=== PATIENT | female | born 1985 | race Caucasian/White ===

== ENCOUNTER 2016-09-13 06:10 | Inpatient (IN) | payer OTHER ==
[~2016-09-13] VITALS: Ht 157.5 cm; Wt 98.0 kg
[~2016-09-13 06:10] MED LIST: BACTRIM DS TAB1 EACH PO; CELEXA40 MG PO; CEPHALEXIN500 MG PO; CYCLOBENZAPRINE5 MG PO; NAPROXEN500 MG PO; NORCO 5-325 TA1 EACH PO; PRENATAL-FOLIC1 EACH PO; PREVACID30 MG PO; PRILOSEC20 MG PO; PRILOSEC40 MG PO; TRAMADOL HCL50 MG PO; TYLENOL325 MG PO; WELLBUTRIN SR100 MG PO; [UNRECOGNIZED DRUG - OTHER] PO
--- NOTE | 2016-09-13 16:59 | PR ---
[facility] [address] [facility] [address] [place], [place] [address] Signed Progress Notes IP Datetime Report Generated by CPN: 09/13/2016 16:58 PROGRESS NOTES: [id number] Impression: Normal progression of labor Procedures: Sterile Vag Exam Plan: Anticipate Vaginal Delivery Informed Consent Obtain: Vaginal Delivery; Risks, Benefits and Alternatives Discussed VITAL SIGNS: [id number] Vital Signs: Reviewed; Within Normal Limits EXAM: [id number] Dilatation: 10.0 Effacement: 100 Station: -2 Uterine Contractions: everty two minutes MEMBRANES: [id number] Membrane Status: Ruptured Amniotic Fluid Color: Clear ROM Note: amniotomy - clear copious fluid Comments: patient complete and starting to push. Fetus A: [id number] FHR Baseline: 120's Variability: Moderate 6-25bpm Accelerations: 15X15 Decelerations: None FHR Category: Category I Presentation: Vertex Comments on Fetus A: reactive Fetus B: [id number] Signing Physician: Gabby Crowley MD CC: *Electronically Signed* 09/13/16 1658 GABBY CROWLEY MD PATIENT NAME: JACKIE HARRIS PROGRESS NOTE DATE OF : 81 PHYSICIAN: GABBY CROWLEY MD RPT #: [id number] REPORT IS CONFIDENTIAL AND NOT TO BE RELEASED WITHOUT AUTHORIZATION
--- NOTE | 2016-09-14 13:39 | PR ---
[facility] [address] [facility] [place], [place] [address] Signed PP Progress Notes Datetime Report Generated by CPN: 09/14/2016 13:38 SUBJECTIVE: [id number] Pain: Within normal limits Nausea/Vomiting: Denies Flatus: Yes Bowel Movement: Yes Vital Signs: [id number] Vital Signs: Reviewed; Within Normal Limits EXAM: [id number] Cardiovascular: Normal Respiratory: Normal Abdomen/Uterus: Normal Lochia: Normal Vulva/Perineum: Normal Breasts: Normal CVA Tenderness: Normal Extremities: Normal Incision: Not Applicable Progress: Normal IMPRESSION/PLAN/PROCEDURES: [id number] Impression: Normal progression Plan: Continue present management Procedures: None Progress Notes: patient doing well. Baby doing well. GBS pos Signing Physician: Gabby Crowley MD CC: *Electronically Signed* 09/14/16 1338 GABBY CROWLEY MD PATIENT NAME: JACKIE HARRIS PROGRESS NOTE DATE OF : 81 PHYSICIAN: GABBY CROWLEY MD RPT #: [id number] REPORT IS CONFIDENTIAL AND NOT TO BE RELEASED WITHOUT AUTHORIZATION
--- NOTE | 2016-09-15 14:08 | PR ---
[facility] [address] [facility] [place], [place] [address] Signed PP Progress Notes Datetime Report Generated by CPN: 09/15/2016 14:07 SUBJECTIVE: [id number] Pain: Within normal limits Nausea/Vomiting: Denies Flatus: Yes Bowel Movement: Yes Vital Signs: [id number] Vital Signs: Reviewed; Within Normal Limits EXAM: [id number] Cardiovascular: Normal Respiratory: Normal Abdomen/Uterus: Normal Lochia: Normal Vulva/Perineum: Normal Breasts: Normal CVA Tenderness: Normal Extremities: Normal Incision: Not Applicable Progress: Normal IMPRESSION/PLAN/PROCEDURES: [id number] Impression: Normal progression Plan: Discharge Procedures: None Progress Notes: patient doing well. Baby doing well. GBS pos Signing Physician: Gabby Crowley MD CC: *Electronically Signed* 09/15/16 1407 GABBY CROWLEY MD PATIENT NAME: JACKIE HARRIS PROGRESS NOTE DATE OF : [birth year] PHYSICIAN: GABBY CROWLEY MD RPT #: [id number] REPORT IS CONFIDENTIAL AND NOT TO BE RELEASED WITHOUT AUTHORIZATION
== END 2016-09-15 14:40 | disposition home or self-care (01) | DRG 775 ==
LOC: FBC 06:11
PROVIDERS: ADMIT Obstetrics & Gynecology
PROC: 10E0XZZ Delivery of Products of Conception, External Approach (ICD-10-PCS; principal; 2016-09-13)
PROC: 10907ZC Drainage of Amniotic Fluid, Therapeutic from Products of Conception, Via Natural or Artificial Opening (ICD-10-PCS; 2016-09-13)
DX: O40.3XX0 Polyhydramnios, third trimester, not applicable or unspecified (principal); Z3A.38 38 weeks gestation of pregnancy; Z37.0 Single live birth; O69.81X0 Labor and delivery complicated by cord around neck, without compression, not applicable or unspecified; O70.1 Second degree perineal laceration during delivery
CPT/HCPCS: 01960; 36415; 85027; 90707; J2540; J2590; J2795; J7120

== ENCOUNTER 2019-05-30 14:22 | Inpatient (IN) | payer OTHER ==
[~2019-05-30] VITALS: Ht 157.5 cm; Wt 75.8 kg
--- NOTE | 2019-05-30 21:35 | EKG ---
[facility] [address] [facility] [place] [address] Signed Sinus tachycardia Otherwise normal ECG Confirmed by TAYA NIEVES MD ([id number]) on 05/30/2019 9:35:22 PM Electronically Signed By: TAYA NIEVES MD 05/30/19 2135 PATIENT NAME: JACKIE HARRIS Electrocardiogram DATE OF : 81 PHYSICIAN: TAYA NIEVES MD REPORT #: [id number] REPORT IS CONFIDENTIAL AND NOT TO BE RELEASED WITHOUT AUTHORIZATION
[2019-06-02] MEDS ORDERED: IBUPROFEN600 MG PO (09:58)
[2019-06-02] MEDS ORDERED: DOK PLUS TABLE1 EACH PO (09:59)
[2019-06-02] MEDS ORDERED: POLYETHYLENE GL17 GM PO (09:59)
[2019-06-02] MEDS ORDERED: CIPROFLOXACIN500 MG PO (10:02)
== END 2019-06-02 11:05 | disposition home or self-care (01) | DRG 872 ==
LOC: ED 14:22 → MS 19:28
PROVIDERS: ADMIT Internal Medicine
DX: A41.51 Sepsis due to Escherichia coli [E. coli] (principal); N10 Acute pyelonephritis; E87.1 Hypo-osmolality and hyponatremia; E87.6 Hypokalemia; E86.1 Hypovolemia; Z88.2 Allergy status to sulfonamides; Z88.1 Allergy status to other antibiotic agents
CPT/HCPCS: 36415; 51701; 71045; 80048; 80053; 81001; 83605; 83735; 84703; 85025; 87077; 87088; 87186; 93005; 93010; 99285-25; J0696; J1650; J1885; J2405; J3475; J3480; J7030; J7121

== ENCOUNTER 2020-01-24 10:32 | Inpatient (IN) | payer OTHER ==
[~2020-01-24] VITALS: Ht 157.5 cm; Wt 76.5 kg
[~2020-01-24 10:32] MED LIST changes: +CIPROFLOXACIN500 MG PO; +DOK PLUS TABLE1 EACH PO; +IBUPROFEN600 MG PO; +POLYETHYLENE GL17 GM PO
--- NOTE | 2020-01-24 15:55 | NUR ---
REPORT RECEIVED FROM MIGUEL RAMOS AT BEDSIDE IN ED. PT TRANSPORTED TO ON STRETCHER WITH SAMREEN PAZ RT SHANKAR AT VENTILATOR, MIGUEL RAMOS AND THIS RN. TRANSFERED TO BED W\O DIFFICULTY. PT TITRATED DOWN TO 40MCQ\KG\HR. VENT SETTINGS AT 40 FI02, PEEP 5, PIP 21 RR 16. VS STABLE. RUTLEDGE DRAINING LIGHT YELLOW Q\S URINE. TEMP UP TO 97.5, BS 51. TURNED D10 BACK UP TO [address] DALLAS AT BEDSIDE. SUCTION AT BEDSIDE.
--- NOTE | 2020-01-24 16:46 | NUR ---
PT BECAME RESTLESS, THRASHING IN BED. GIVEN 50MCQ OF FENTYL AND TURNED PROP UP TO 55MCQ
--- NOTE | 2020-01-24 17:08 | NUR ---
RT AND DR NIEVES IN ROOM TO DRAW ABG. VS STABLE. RUTLEDGE EMPTIED AND PUMPS CLEARED.
--- NOTE | 2020-01-24 17:39 | NUR ---
BP TRENDING DOWN. TITRATED PROP DOWN TO 50MCQ AND ADMINISTERED 50MCQ OF FENTYL PT WAS STIRRING.
--- NOTE | 2020-01-24 17:45 | NUR ---
RESTRAINTS CHECKED. CMS INTACT.
--- NOTE | 2020-01-24 20:35 | NUR ---
PT DID AWAKEN TO TOUCH AND TRY TO SIT FORWARD. CONT ON PROPOFOL AT 50MCG/MIN PT GIVEN 40MG KETAMINE IV. PT REPOSTIONED. NOTED TO HAVE RHONCHI THROUGHOUT, SUCTIONED ETT, RHONCHI ALMOST CLEAR L CHEST AND REDUCED ON RT. SUCTIONED ORALLY. ROM DONE.
--- NOTE | 2020-01-24 21:23 | NUR ---
DR NIEVES CALLED RE RECOMENDATION FROM [facility] OF OCTREOTIDE FOR HYPOGLYCEMIA, ORDER RECIEVED. ORAL CARE DONE. PT SOMEWHAT RESISTIVE DURING ORAL CARE, REASURED AND DID CALM ON OWN. BROW FURROWED WHEN OCTREOTIDE GIVEN AND CRIED , AGAIN CALMED , CONT ON PROPOFOL AT 50MG/HR
--- NOTE | 2020-01-24 21:57 | NUR ---
PATIENT RUTLEDGE EMPTIED OF 220CC CLEAR YELLOW URINE. BLOOD GLUCOSE CHECKED AND WAS 127.
--- NOTE | 2020-01-24 22:45 | NUR ---
SOMEWHAT RESLTESS, GIVEN 40MG KETAMINE IV. SUCTINED ORALLY. REPOSITONED
--- NOTE | 2020-01-24 23:11 | NUR ---
PATIENT BLOOD GLUCOSE WAS 170. DR. NIEVES CONTACTED. PER DR. NIEVES, DEXTROSE 10 TITRATED TO 50ML/HR. RUTLEDGE EMPTIED OF 60CC CLEAR YELLOW URINE.
--- NOTE | 2020-01-25 00:16 | NUR ---
SUCTIONED ORALLY, AROUSED BRIEFLY THEN BACK TO SLEEP. BP 88/55, PROPOFOL DEC TO 45MG/HR. BS 165, D10 INUSION TURNED OFF.
--- NOTE | 2020-01-25 00:50 | NUR ---
RT IN TO DO ORAL CARE AND CHANGE ETT CONNER. PT GIVEN 20MG KETAMINE IV PRIOR TO PROCEDURE FOR SEDATION.
--- NOTE | 2020-01-25 02:02 | NUR ---
PT. BLOOD GLUCOSE WAS 113. RUTLEDGE EMPTIED OF 55CC OF CLEAR, STRAW COLOR URINE.
--- NOTE | 2020-01-25 02:54 | NUR ---
HAD TITRATED PROPOFOL TO 35MG/HR. PT AROUSED AND COUGHING, AND GAGGING. SUCTIONED ORALLY, AND DOWN ETT. PT CONT TO GAG SO WAS GIVEN 20MG KETAMINE IV. RT VALENTIN HERE AND PIP NOTED 44, ETT SUCTIONED FURTHER AND PIP DID DECT O 22. BREATH TONE CLEAR. IS QUIET NOW.
--- NOTE | 2020-01-25 03:02 | NUR ---
PATIENT BLOOD GLUCOSE WAS 130. RUTLEDGE EMPTIED OF 140CC LIGHT YELLOW URINE. PATIENT REPOSITIONED IN BED.
--- NOTE | 2020-01-25 04:15 | NUR ---
PT AGITATED WITH COUGHING EPISODE, THROWING LEG OVER SIDE RAIL AND GAGGING STRONGLY. GIVEN 20MG KETAMINE IV. PT CALMED AND THEN ABLE TO DO ORAL CARE WITHOUT DISTRESS.
--- NOTE | 2020-01-25 04:34 | NUR ---
PATIENT ASSESSMENT COMPLETED AND PT. LUNGS CLEAR THROUGHOUT. RECEIVED INLINE SUCTION AFTER COUGHING AND ORAL CARE. PATIENT RESPONSIVE AND CRIED AT TIMES. WHEN ASKED TO SQUEEZE NURSES HAND, PT. DID SO. PT. RECEIVED PASSIVE ROM. PT. IV SITES WNL. PT. LEFT RESTING IN BED.
--- NOTE | 2020-01-25 07:30 | NUR ---
REPORT RECEIVED FROM NIGHTSHIFT RN, CARE OF PT. RESUMED, WILL CONTINUE PLAN OF CARE.
--- NOTE | 2020-01-25 08:15 | NUR ---
PT LAYING IN BED IV D5LR INFUSING AT ORDERED RATE OF 125, PROPOFOL INFUSING AT 35MCG/KG/MIN. VT AT 500, FIO2 AT 30%, PEEP AT 5, VC-AC AT 16. PT RASS SCORE CURRENTLY AT -3. ETCO2 AT 40, RR AT 16. PT LAYING SLIGHT GRIMACE DURING FINGER POKE WHEN CHECKING BLOOD GLUCOSE. BED IN LOWEST POSITION, SOFT RESTRAINTS IN PLACE ON WRIST, 24CM MARKED AT TEETH. WILL CONTINUE PLAN OF CARE.
--- NOTE | 2020-01-25 08:48 | NUR ---
PROPOFOL DECREASED TO 20MCG/KG/MIN PER DR. NIEVES'S ORDERS TO HALF THE DOSE. ORDERED MEDICATIONS GIVEN, PT SUCTIONED ORALY DUE TO COUGHING FIT. PT WAS RESTLESS BUT ABLE TO RELAX AND CALM DOWN WITH SOME ORIENTING AND TALKING. PT NOW LAYING IN BED RELAXED. IVF STILL INFUSING AT ORDERED RATE, PROPOFOL NOW INFUSING AT 20MCG/KG/MIN. WILL CONTINUE PLAN OF CARE.
--- NOTE | 2020-01-25 08:58 | NUR ---
DR. NIEVES IN ROOM TO ASSESS PT. ORDERS GIVEN TO REDUCE PROPOFOL DOWN FROM 20 TO 5MCG/KG/MIN. PROPOFOL NOW INFUSING AT NEW ORDERED RATE, WILL CONTINUE PLAN OF CARE.
--- NOTE | 2020-01-25 09:08 | NUR ---
PT LAYIN IN BED WITH A RASS SCORE OF -1, PER DR. TOURE ORDER PROPOFOL STOPPED AT 0910, WILL CONTINUE PLAN OF CARE.
--- NOTE | 2020-01-25 09:15 | NUR ---
MED REC COMPLETE
--- NOTE | 2020-01-25 10:23 | NUR ---
PT LAYING IN BED SEMIFOWLERS. PT NOW ON CPAP MODE ON VENTILATOR. RR AT 10, SPO2 96%, FIO2 AT 30%, PEEP AT 5. PT MORE ALERT THOUGH STILL SLIGHTLY DROWSY. PT. HAS BEEN HAVING PERIODS OF ALERTNESS AND RESTLESSNESS BUT ALSO GOES BACK TO A STATE OF DROWSINESS. PT CURRENTLY AWAKE WITH EYES OPEN. PT HAS DECLINED SUCTIONING WHEN ASKED. IVF INFUSING ORDERED. WILL CONTINUE PLAN OF CARE.
--- NOTE | 2020-01-25 10:37 | NUR ---
PT READY TO EXTUBATE, WAITING FOR DR. NIEVES. PT ABLE TO FOLLOW COMMANDS AT THIS TIME. WILL CONTINUE PLAN OF CARE.
--- NOTE | 2020-01-25 11:01 | NUR ---
PT EXTUBATED AT 1048. PT CURRENTLY LAYING IN BED AWAKE. PT WAS REORIENTED TO EVENT AND LOCATION SHE WAS ASKING WHAT HAPPENED. IVF INFUSING AT ORDERED RATE PT SPO2 AT 96% ON ROOM AIR PT REFUSED NC AFTER EXTUBATION. PT REPORTS NO PAIN AT THIS TIME AND NO FURTHER NEEDS. WILL CONTINUE PLAN OF CARE.
--- NOTE | 2020-01-25 11:30 | NUR ---
POISON CONTROL CALLED BACK AND GIVEN AN UPDATE. THEY STATED THEY WILL FOLLOW UP AGAIN THIS AFTERNOON. NO FURTHER SUGGESTIONS AT THIS TIME.
--- NOTE | 2020-01-25 12:32 | NUR ---
PT LAYIN IN BED WITH AT BEDSIDE. IV FLUIDS INFUSING AT ORDERED RATES. PT REPORTS NO PAIN WHEN ASKED. PT CURRENTLY ON ROOM AIR, SPO2 AT 94%, RR AT 20. PT ORIENTED TO SELF, LOCATION, AND MONTH WHEN ASKED. PT REPORTED NO FURTHER NEEDS WHEN ASKED, WILL CONTINUE PLAN OF CARE.
--- NOTE | 2020-01-25 14:10 | EKG ---
[facility] [address] [facility] [place] [address] Signed Normal sinus rhythm with sinus arrhythmia Prolonged QT Abnormal ECG When compared with ECG of 30-MAY-2019 15:02, Vent. rate has decreased BY 37 BPM Confirmed by TAYA NIEVES MD ([id number]) on 01/25/2020 2:10:05 PM Electronically Signed By: TAYA NIEVES MD 01/25/20 1410 PATIENT NAME: JACKIE HARRIS Electrocardiogram DATE OF : 81 PHYSICIAN: TAYA NIEVES MD REPORT #: [id number] REPORT IS CONFIDENTIAL AND NOT TO BE RELEASED WITHOUT AUTHORIZATION
--- NOTE | 2020-01-25 14:11 | NUR ---
PT LAYING IN BED RESTING. PT ON ROOM AIR WITH AN SPO2 OF 94% AND RR OF 17. PT STATES THAT SHE HAS NO PAIN WHEN ASKED. RUTLEDGE CATHETER REMOVED. PT TOLERATED IT WELL AND RUTLEDGE WAS INTACT AND WITHIN NORMAL LIMITS. IV FLUIDS INFUSING ORDERED. PT REPORTS NO NEEDS AT THIS TIME WHEN ASKED. BED IN LOWEST POSITION, CALL LIGHT WITHIN REACH. PT INFORMED ABOUT USING CALL LIGHT NOW THAT RUTLEDGE HAS BEEN REMOVED. WILL CONTINUE PLAN OF CARE.
--- NOTE | 2020-01-25 15:00 | NUR ---
Assessment completed on Connie. She is sleepy and has difficulty speaking. Wants to go home on dc. States they are staying with friends and are no longer homeless. She has services with [facility] and they visited after her notified them she was in CCU.
--- NOTE | 2020-01-25 15:15 | NUR ---
RESPONDED TO PT IV PUMP. PT LAYING IN BED SLEEPING. ARM REPOSITIONED AND IV FLUIDS RESUMED. PT STATES SHE HAS NO PAIN WHEN ASKED. PT REPORTS NO FURTHER NEEDS WHEN ASKED AND RETURNED BACK TO SLEEP. BED IN LOWEST POSITION, CALL LIGHT WITHIN REACH, WILL CONTINUE PLAN OF CARE.
--- NOTE | 2020-01-25 16:30 | NUR ---
PT LAYING IN BED RESDTING. IV FLUIDS INFUSING ORDERED. PT SPO2 AT 93%, RR AT 21 ON ROOM AIR. PT REPORTS NO PAIN WHEN ASKED AND NO DIFFICULTY BREATHING. PT REPORTS NO FURTHER NEEDS AT THIS TIME. WILL CONTINUE PLAN OF CARE. CALL LIGHT ON BED WITHIN REACH, BED IN LOWEST POSITION.
--- NOTE | 2020-01-25 17:12 | NUR ---
PT LAYING IN BED AWAKE. WHEN ASKED IF SHE NEEDED TO USE THE RESTROOM PT. SAID YES. PT WAS ABLE TO GET UP TO BEDISDE COMMODE UNASSISTED AND VOIDED 800ML. PT THEN WAS ABLE TO WALK OVER TO BEDSIDE CHAIR AND SIT DOWN. PT WIPED DOWN WITH BATH WIPES BY MIGUEL CHANG. PT LINENS AND GOWN CHANGED. PT NOW AT BEDSIDE CHAIR RESTING WITH EYES CLOSED. PT REPORTS NO PAIN AND NO FURTHER NEEDS AT THIS TIME. PT DINNER HAS ARRIVED AND WILL BE HAVING A CLEAR LIQUID TRAY. CALL LIGHT WITHIN REACH. WILL CONTINUE PLAN OF CARE.
--- NOTE | 2020-01-25 19:15 | NUR ---
Report received, orders acknowledged. in room visiting with patient currently.
--- NOTE | 2020-01-25 19:45 | NUR ---
Patient laying in bed on left side, leaves room. Patient seems subdued. When asked how patient is, patient becomes teary and states "I'm doing okay, I'm really tired." POC for the shift is discussed, patient agreeable. New bag of D5LR infusing at 75 mls/hr. Patient denies any needs at this time. Patient is laying in bed with eyes closed, call light within reach.
--- NOTE | 2020-01-25 21:47 | NUR ---
Patient up to toilet with SBA to help manage cords, steady on feet. Voids 900 mls of yellow urine. Returns to bed, non-productive coughing noted at times. Patient now laying on right side, respirations even and unlabored. Reports headache with 5/10 pain. Patient falls asleep easily with eyes closed. D5LR infusing at 75 mls/hr. Warm blanket provided, call light within reach.
--- NOTE | 2020-01-25 23:13 | NUR ---
Patient sleeping in bed. HR noted to increase to the 110-120's at times. This is typically associated with patient readjusting in bed. Call light within reach.
--- NOTE | 2020-01-26 00:10 | NUR ---
Patient sleeping in bed on right side, respirations even and unlabored. Patient rouses to physical stimulation. Vital signs taken, assessment complete. BG of 109. Patient sits up in bed and uses IS several times, which produces coughing. Crackles auscultated in patient's right lower and mid lobe, dim in the lower left lobe, and clear in upper lobes. 500mg of tylenol given for headache, patient reports pain of 5/10. Patient appears flushed and clammy, temp of 97.9. Denies any needs at this time, call light within reach.
--- NOTE | 2020-01-26 01:48 | NUR ---
Patient sleeping in bed, respirations even and unlabored. SpO2 of 98% on RA, respiratory rate of 20. D5LR infusing at 75 mls/hr. Call light within reach.
--- NOTE | 2020-01-26 03:50 | NUR ---
Patient sleeping in bed on right side, respirations even and unlabored. SpO2 in the upper 90's on RA. Vital signs taken, assessment complete. BG of 102. D5LR infusing at 75 mls/hr. Denies headache, falls asleep easily. Call light within reach.
--- NOTE | 2020-01-26 05:45 | NUR ---
Patient laying in bed on right side, respirations even and unlabored. SpO2 of 99% on RA, RR of 20. D5LR infusing at 75 mls/hr. Call light within reach.
--- NOTE | 2020-01-26 06:19 | PATH ---
[facility] [address] [place], [place] [address] Signed ORDERING PHYSICIAN: Inés Singh MD PATIENT NAME: JACKIE HARRIS GENDER: F : 1985 Prior History: DATE CASE NUM ADEQUACY DIAGNOSIS HPV RESULTS PHYSICIAN 05/19/12 [id number] Kvng Castillo MD The 5 most recent reports are included. This history does not include results of pap smears performed at another laboratory. SPECIMEN(S): MOLECULAR PATHOLOGY RESULTS: SARS-CoV-2 Not Detected ADDITIONAL NOTES.: The [place] [employer] Fusion SARS-CoV-2 Assay is a multiplex real-time PCR (RT-PCR) in vitro diagnostic test intended for the qualitative detection of RNA from SARS-CoV-2 from individuals who meet COVID-19 clinical and/or epidemiological criteria. In general, SARS-CoV-2 RNA can be detected during the acute phase of infection. Positive results indicate the presence of SARS-CoV-2 RNA. Clinical correlation with patient history and other diagnostic information is necessary to determine patient infection status. Positive results do not rule out bacterial infection or co-infection with other viruses. Negative results do not preclude SARS-CoV-2 infection and should not be used as the sole basis for patient management decisions. Negative results must be combined with other clinical observations, patient history, and epidemiological information. The [place] Fusion SARS-CoV-2 Assay is not yet approved or cleared by the [place] FDA. When there are no FDA-approved or cleared tests available, and other criteria are met, FDA can make tests available under an emergency access mechanism called an Emergency Use Authorization (EUA). The EUA for this test is supported by the [place] of Health and Human Service's (HHS's) declaration that circumstances exist to justify the emergency use of in vitro diagnostics for the detection and/or diagnosis of the virus that causes COVID-19. This EUA will remain in effect for the duration of the PATIENT NAME: JACKIE HARRIS PATHOLOGY DATE OF : [birth year] REPORT #: [id number] PHYSICIAN: ANNEMARIE PATHOLOGY PCP: NO PRIMARY CARE PHYSICIAN REPORT IS CONFIDENTIAL AND NOT TO BE RELEASED WITHOUT AUTHORIZATION [facility] [address] [place], [place] [address] Signed COVID-19 declaration justifying emergency of IVDs, unless it is terminated or revoked by FDA, after which the test may no longer be used. The [place] Fusion SARS-CoV-2 Assay is for use only under EUA in US laboratories certified under the Clinical Laboratory Improvement Amendments of 1988 (CLIA) to perform high complexity tests. [facility] is certified under CLIA to perform high complexity clinical laboratory testing. PERFORMING LABORATORY.: Molecular testing was performed by [facility] [address] [place] [address] (In Home Nanny: Galileo Garza D.O.; CLIA#: [id number]) Diagnostician: System Interface Pathologist Electronically Signed 01/25/2020 Copies: ~ PATIENT NAME: JACKIE HARRIS PATHOLOGY DATE OF : [birth year] REPORT #: [id number] PHYSICIAN: ANNEMARIE PATHOLOGY PCP: NO PRIMARY CARE PHYSICIAN REPORT IS CONFIDENTIAL AND NOT TO BE RELEASED WITHOUT AUTHORIZATION
--- NOTE | 2020-01-26 07:56 | NUR ---
REPORT RECEIVED FROM MIGUEL TA. PT APPEARS TO BE RESTING COMFORTABLY WITH EYES CLOSED. HR 99, SR. LAST BS 102. D5LR @75. CALL LIGHT IN REACH.
--- NOTE | 2020-01-26 08:11 | NUR ---
CM FAY IN ROOM. PT DROWSY AND VOICE HOARSE. APPEARS TO BE ANSWERING ALL QUESTIONS. BS 85, WILL GIVE JUICE AND ORDER A BREAKFAST. ANNEALERJc ARCINIEGA DID VS.
--- NOTE | 2020-01-26 08:15 | NUR ---
Followed up with Connie. She is more awake today, but again complaining of feeling very tired and a sore throat. States she is living at her friend, Harry"s, house. She states she does not remember taking drugs just woke up here. She is not interested in drug placement, but wants to continue with G[facility] from [facility]. Updated I made her appt with Daniella Rodriguez, and reminded she must keep this appt or they will discharge her as their patient.
--- NOTE | 2020-01-26 08:18 | NUR ---
Pt. vitals taken and recorded. breakfast ordered. room picked up. no other needs at this time. call light with in pt. reach.
--- NOTE | 2020-01-26 08:46 | NUR ---
HUNG NEW BAG OF D5LR, BREAKFAST ORDERED.
--- NOTE | 2020-01-26 09:39 | NUR ---
WOKE PT AND ADMINISTERED PO k+ REPLACEMENT. PT TOLERATED WELL.
--- NOTE | 2020-01-26 10:42 | NUR ---
RECHECK OF BS IS 102. PT CONTINUES TO SLEEP BUT DID ASK FOR OTHER HAND TO BE USED FOR BS CHECK THIS TIME.
--- NOTE | 2020-01-26 11:49 | NUR ---
BS NOW 113. STARTED LR BOLUS. PT CONTINUES TO BE DROWSY BUT AROUSABLE. DRANK A VERY SMALL PORTION OF HER MOUNTAIN DEW.
--- NOTE | 2020-01-26 11:58 | NUR ---
IN ROOM TO DISCUSS NEW TREATMENT PLAN. MAKE PT STATUS NPO EXCEPT ICE WATER, DUE TO ELIMINATING ALL SUGAR FROM DIET TO TRIAL BS. TURNED OFF D5LR, LR BOLUS STILL RUNNING. REMOVED ALL FOOD AND SODA FROM ROOM. PT AWARE AND AGREEABLE.
--- NOTE | 2020-01-26 12:07 | NUR ---
HUNG LR THE MAINTENCE FLUIDS FOR AFTER BOLUS IS COMPLETE PER DR CASAS. REPLACED LEAD.
--- NOTE | 2020-01-26 13:10 | NUR ---
WOKE PT BRIEFLY TO ASK IF SHE HAD ANY S\\S OF HYPOGLYCEMIA, STATES SHE FEELS "NORMAL". ASSESED IV SITE WITH IVF RUNNING, KAVYA.
--- NOTE | 2020-01-26 14:09 | NUR ---
ASSESS BS (91) AND HAD A GOOD CONVERSTATION WITH PT REGARDING WHAT WE ARE TESTING FOR AND WHY SHE CAN'T EAT RIGHT NOW. SHE ASKED APPROPRIATE QUESTIONS AND STATED THAT SHE HAD TAKEN METH 2 DAYS PRIOR TO INCIDENT BUT NOTHING BEFORE FALLING ASLEEP FRIDAY EVENING. STATES SHE ATE PIZZA AND SOME SODA BUT DID NOT TAKE ANY PILLS OR ANY DRUGS. RE EDUCATED ON S\S OF HYPOGLYCEMIA TO WATCH FOR
--- NOTE | 2020-01-26 17:06 | NUR ---
PT VS ASSESSED. PT AGAIN REITERATED THAT SHE IS HUNGRY AND WOULD LIKE TO EAT. EDUCATED PT ON WHY WE HAVE HER NPO EXCEPT WATER AND VERBALIZED UNDERSTANDING. WILL REASSESS BS AT 18OO.
--- NOTE | 2020-01-26 17:55 | NUR ---
PT UP TO USE RESTROOM. 700 CLOUDY URINE OUT. ASSISTED PT TO DO A BED BATH, WASHED PT'S HAIR WITH A SHOWER CAP AND GIVEN PERSONAL SUPPLY BAG. ADMINISTERED TYLENOL FOR A HEADACHE AFTER SPEAKING WITH PHARMACY REGARDING ANY SUGAR CONTENT. PHARM STATED THE TAB DOES NOT CONTAIN ANY SUGARS.
--- NOTE | 2020-01-26 18:02 | NUR ---
PT BS @ 7229- 35. PUMP CLEARED. CALL LIGHT IN REACH. PT DENIES CONCERNS.
--- NOTE | 2020-01-26 18:30 | NUR ---
CALLED DR CASAS WITH BS RESULTS. HE WOULD LIKE TO KEEP HER NPO UNTIL 1999 AND IF THE BS HASN'T DROPPED SIGNIFICANTLY THEN SHE CAN EAT DINNER. THEN FAST AGAIN AT 2200 FOR CORTISYNTROPIN TEST AT 0800 TOMORROW. PT AGREEABLE AND ORDERED DINNER TO KEEP IN REFRIDGERATOR.
--- NOTE | 2020-01-26 19:15 | NUR ---
Report received, orders acknowledged.
--- NOTE | 2020-01-26 20:10 | NUR ---
Patient sitting up in bed watching tv. Vital signs taken, assessment complete. BG of 84 at [address] Da Silva to update on patient BG. Orders acknowledged to let patient eat until 2200, then begin fasting again until 0800 tomorrow morning for cosyntropin panel. Patient updated on POC, patient agreeable and understands fasting will begin again at 2200. Dinner delivered and patient eating meal.
--- NOTE | 2020-01-26 21:00 | NUR ---
Checked on patient to see if she would like anything to eat or drink before 2200, patient denies need for anything. Patient now laying in bed talking on the phone. Reports feeling cold, temp in room turned up. Patient denies need for warm blanket. Call light within reach.
--- NOTE | 2020-01-26 21:45 | NUR ---
Checked on patient to see if she would like anything else to eat or drink before 2200. Patient denies need for anything. Senna provided for patient. Patient uses IS several times, reaching 2250 on instrument. Large cough after using the IS. Patient laying in bed now watching tv, denies any needs. Call light within reach.
--- NOTE | 2020-01-26 22:00 | NUR ---
Patient laying in bed on left side with eyes closed. All drinks removed from room. No food or drink now available in room, patient starting to fast until 0800 tomorrow. Patient agreeable to POC. LR infusing at 75 mls/hr. Denies needs, call light within reach.
--- NOTE | 2020-01-27 00:30 | NUR ---
Patient sleeping in bed on right side, respirations even and unlabored. LR infusing at 75 mls/hr. Vital signs taken, assessment complete. BG of 103. Denies any pain. No needs at this time, call light within reach.
--- NOTE | 2020-01-27 04:15 | NUR ---
Patient sleeping in bed, rouses easily to voice. Vital signs taken, assessment complete. BG of 101. LR infusing at 75 mls/hr. Coarseness auscultated in right lower lobe, clear throughout rest of lung lobes. Spot check SpO2 shows 93%. Patient encouraged to cough, and does so, which produces several large coughs. SpO2 climbs to 99%. Patient denies urge to void. Denies pain. Lays back in bed and falls asleep easily. Call light within reach.
--- NOTE | 2020-01-27 05:55 | NUR ---
Patient sleeping in bed on left side, respirations even and unlabored. LR infusing at 75 mls/hr. Call light within reach.
--- NOTE | 2020-01-27 07:30 | NUR ---
REPORT RECIEVED FROM CHILD DAY CARE TEACHER RN. PATIENT RESTING IN BED. PER REPORT PATIENT HAS BEEN NPO SINCE 10PM FOR CORTISOL LABS THIS AM. WILL CONTACT LAB, PHARMACY, AND MD CASAS FOR ORDERS.
--- NOTE | 2020-01-27 08:00 | NUR ---
ORDER RECIEVED FROM MD CASAS FOR MEDICATION. LAB HERE TO DRAW LABS. PATIENT AGREEABLE TO PLAN OF CARE. WILL CONTINUE TO CLOSELY MONITOR.
--- NOTE | 2020-01-27 08:02 | NUR ---
given fresh water, vitals taken and recorded, room picked up. bed linens changed. call light within reach. no other needs at this time.
--- NOTE | 2020-01-27 08:45 | NUR ---
PATIENT ASSESSMENT COMPELTED. PATIENT RESTING IN BED. PATIENT HAS A FLAT AFFECT, BUT RESPONDS APPROPRIATELY TO STAFF. PATIENT BOWEL TOENS ACTIVE. BREATH SOUNDS CLEAR. OCCASIOANL LOOSE COUGH. PATIENT IS STEADY ON HER FEET. CURRENTLY DOING A CORTISOL PANEL OF LABS. NO OTHER NEEDS AT THIS TIME. WILL CONTINUE TO CLOSELY MONITOR.
--- NOTE | 2020-01-27 10:30 | NUR ---
PATIENT ATE BREAKFAST AND TOELRATED WELL. PATIENT DENEIS ANY NEEDS AT THIS TIME. PATIENT RESTING IN BED WATCHING TV. WILL CONTINUE TO CLOSELY MONITOR.
--- NOTE | 2020-01-27 11:28 | NUR ---
PATIENT UP TO THE BATHROOM AND TOLERATED WELL. PATIENT ATE BREAKFAST AND STATES NO ISSUES WITH IT. PATIENT HOPING TO GET TO GO HOME TODAY. PATIENT RESTING BACK IN BED WATCHING TV AT THIS TIME. WILL CONTINUE TO CLOSELY MONITOR.
[2020-01-27] MEDS ORDERED: FREESTYLE LITE1 EAC1 TD (12:26)
[2020-01-27] MEDS ORDERED: FREESTYLE FREE1 EAC1 MISC (12:26)
--- NOTE | 2020-01-27 14:00 | NUR ---
PATIENT SPEAKING OPENLY WITH THIS RN ABOUT CURRENT STRESSES AND EVENTS LEADING UP TO HER HOSPITALIZATION. OFFERED SUPPORT SERVICES AND PATIENT DENIED. OFFERED FOR THE MOTOR ASSEMBLER TO COME SAY A PRAYER WITH HER AND PATIENT STATED "PLEASE HAVE HIM SAY A PRAYER FOR US, BUT I JUST CANT HAVE HIM COME SEE ME, I DONT WANT TO BREAK DOWN IN TEARS AGIN". MOTOR ASSEMBLER RICK BROUGHT A PRAYER SHALL FOR PATIENT. THIS RN GAVE HER IT AND PATIENT WAS VERY THANKFUL. PATIENT WILL BE DCD TODAY. AWAITING DISCHARGE ORDERS.
--- NOTE | 2020-01-27 14:10 | NUR ---
RX, chart notes, face sheet faxed to [facility] for a glucometer and diabetic supplies.
--- NOTE | 2020-01-27 14:15 | NUR ---
MD IN TO SEE PATIENT. PATIENT WILL DCD HOME. PATIENT AGREEABLE TO PLAN. PRISCRIPTIONS WILL BE FAXED TO [facility]. CASE MANAGEMENT IN TO TALK WITH PATIENT. WILL GET PATIENT CLOTHES TO DISCHARGE HOME IN.
--- NOTE | 2020-01-27 14:21 | NUR ---
Spoke with Connie. UPdated I have sent Rx to [facility] for Glucometer. Rn is getting her a shirt to go home. She denies other needs, just wanting to go home yeny. She will take a taxi home as her spouse is home with kids.
--- NOTE | 2020-01-27 14:37 | NUR ---
MIGUEL REINA CONNECTED WITH ME AND STATED THAT PT COULD NOT SEE ME AT THIS TIME BUT REQUESTED I PRAY FOR A SPECIFIC NEED THAT IS WEIGHING HEAVY ON HER HEART. GAVE CARLA DAVISON TO MIGUEL REINA, HAD HER TELL PT I WILL BE PRAYING. WILL FOLLOW NEEDED
--- NOTE | 2020-01-27 15:00 | NUR ---
PATIENT DISCHARGED HOME WITH HER . NO FURTHER QUESTIONS. ALL BELONGINGS SENT WITH PATIENT. BOTH IVS DCD. PATIENT WHEELED TO THE FRONT OF THE HOSPITAL. PATIENT GIVEN CLOTHES TO DISCHARGE HOME IN D/T NOT HAVING CLOTHES HERE. NO OTHER NEEDS AT SI TIME.
== END 2020-01-27 15:00 | disposition home or self-care (01) | DRG 917 ==
LOC: ED 10:32 → CCU 14:51
PROVIDERS: ADMIT Internal Medicine; ATTEND Internal Medicine
PROC: 0BH17EZ Insertion of Endotracheal Airway into Trachea, Via Natural or Artificial Opening (ICD-10-PCS; principal; 2020-01-24)
PROC: 5A1935Z Respiratory Ventilation, Less than 24 Consecutive Hours (ICD-10-PCS; 2020-01-24)
DX: T42.74XA Poisoning by unspecified antiepileptic and sedative-hypnotic drugs, undetermined, initial encounter (principal); G92 Toxic encephalopathy; J96.01 Acute respiratory failure with hypoxia; N39.0 Urinary tract infection, site not specified; Z20.828 Contact with and (suspected) exposure to other viral communicable diseases; R68.0 Hypothermia, not associated with low environmental temperature; R00.1 Bradycardia, unspecified; M54.9 Dorsalgia, unspecified; E16.0 Drug-induced hypoglycemia without coma; D37.8 Neoplasm of uncertain behavior of other specified digestive organs; G89.29 Other chronic pain; R00.0 Tachycardia, unspecified; Z88.1 Allergy status to other antibiotic agents; Z88.2 Allergy status to sulfonamides; Z78.1 Physical restraint status
CPT/HCPCS: 31500; 36415; 36600; 70450; 71045; 80048; 80053; 80176; 80400; 81001; 82533; 82542; 82803; 83525; 83735; 84681; 85025; 93005; 93010; 94002; 94003; C9113; C9803; G0480; J0696; J0834; J1650; J2310; J2354; J2704; J3010; J3475; J3480; J7030; J7060; J7121